=== PATIENT | male | born 1960 | race American Indian/Alaskan Native ===

== ENCOUNTER 2021-11-24 00:15 | Emergency (ER) | payer OTHER | END 2021-11-24 02:30 | disposition left against medical advice (07) | LOC: DL.ED 00:15 | DX: Z53.21 Procedure and treatment not carried out due to patient leaving prior to being seen by health care provider (principal) ==

== ENCOUNTER 2021-12-12 12:16 | Emergency (ER) | payer MEDICAID, OTHER ==
[2021-12-12] MEDS ORDERED: Sodium Chloride 0.9% 10 ML Syringe FLUSH PRN (12:39)
[2021-12-12 12:50] VITALS: BP 161/56; PULSE 63
[2021-12-12 13:16] LABS: ANION GAP 13.2 mEq/L (7-13)
[2021-12-12] MEDS ORDERED: Sodium Chloride 0.9% 1,000 ML IV ONE (13:29)
[2021-12-12] MEDS ORDERED: Albuterol 0.083% 2.5 MG/3 ML Neb Soln NEB ONE (13:29)
== END 2021-12-12 14:14 | disposition home or self-care (01) ==
LOC: DL.ED 12:16
DX: J98.11 Atelectasis (principal); I25.10 Atherosclerotic heart disease of native coronary artery without angina pectoris; E78.00 Pure hypercholesterolemia, unspecified; I10 Essential (primary) hypertension; Z79.899 Other long term (current) drug therapy; Z79.01 Long term (current) use of anticoagulants
CPT/HCPCS: 36415; 71046; 80053; 83605; 83735; 85025; 86140; 93005; 99285; J7613-GY